=== PATIENT | male | born 1940 | race Caucasian/White ===

== ENCOUNTER 2020-03-23 15:58 | Observation (INO) | payer MEDICARE ==
[2020-03-23 19:00] LABS: #Lymphocytes 1.9 thou/uL (1.20-3.40); #Monocytes 0.7 thou/uL (0.11-0.59); #Neutrophils 5.3 thou/uL (1.40-6.50); %Basophils 0.4 % (0.0-1.0); %Eosinophils 0.6 % (0.0-10.0); %Lymphocytes 23.6 % (21.0-51.0); %Monocytes 8.3 % (0.0-10.0); %Neutrophils 67.2 % (42.0-75.0); Hemoglobin 15.8 g/dL (14.0-18.0); Mean Corpuscular HGB CONC 32.5 g/dL (32.0-36.0); Mean Corpuscular Hemoglobin 31.5 pg (27.0-31.0); Mean Platelet Volume 7.3 fL (7.4-10.4); Platelet Count 232 thou/uL (130-400); RBC Distribution Width 11.3 % (11.5-14.5); Red Blood Cell (RBC) Count 5.01 mill/uL (4.70-6.10); White Blood Cell (WBC) Count 7.9 thou/uL (4.8-10.8)
[2020-03-23 19:06] LABS: ALT (SGPT) 16 U/L (8-55); AST (SGOT) 16 U/L (5-34); Albumin 4.3 g/dL (3.4-4.8); Alkaline Phosphatase 63 U/L (40-110); Anion Gap 13 mmol/L (10-20); BUN (Urea Nitrogen) 19 mg/dL (8.4-25.7); Bilirubin, Total 0.3 mg/dL (0.2-1.2); Calc. Creatinine Clearance 0 mL/min (70-130); Calcium 9.3 mg/dL (7.8-10.44); Carbon Dioxide 27 mmol/L (23-31); Chloride 106 mmol/L (98-107); Estimated GFR-MDRD 73; Globulin 2.9 g/dL (2.4-3.5); Glucose 94 mg/dL (83-110); Potassium 4.6 mmol/L (3.5-5.1); Protein, Total 7.2 g/dL (5.8-8.1); Sodium 141 mmol/L (136-145)
[2020-03-23] MEDS ORDERED: Aspirin Chewable 81 MG TAB ONE ×2 (19:51→19:52)
--- NOTE | 2020-03-23 20:45 | RAD ---
CHEST ONE VIEW: 03/23/20 HISTORY: Chest pain. COMPARISON: None. FINDINGS: Lungs are mildly hypoinflated. Heart size is enlarged. No pneumothorax. No effusion. No acute osseous abnormality. IMPRESSION: Lung hypoinflation with bibasilar atelectasis and crowding of the pulmonary vasculature. POS: HOME
--- NOTE | 2020-03-23 21:56 | PDOC.HHP ---
Hospitalist HPI - History of Present Illness Blurry vision, chest discomfort History of Present Illness: Mr. Espinoza is a 79-year-old male with a past medical history of hypertension who presented to the emergency room for multiple episodes of lightheadedness. Patient reports that over the past 4 days he has had episodes where he feels mild chest discomfort, diaphoretic, weak all over with blurry vision. Episodes will last only for a few seconds and then completely resolved. Patient has noticed these episodes at rest and also on exertion. He denies any shortness of breath, palpitations. He denies any nausea vomiting or diarrhea. Denies melena, hematochezia. Patient has limited past medical history, and does not have a primary care provider. He does report that he has a history of high blood pressure, but that he is not on any medication for it. In emergency room initial vital signs 170/87, 57, 18, 98.2, 95% on room air EKG showed no ischemic changes, but atrial bigeminy complexes and LVH. Initial troponin less than 0.010. BUN/CR 19/0.99. H/H 15.8/48.6. WBC 7.9. Sodium 141, potassium 4.6. Glucose 73. Patient received 325 mg of aspirin in emergency room. Hospitalist ROS - Review of Systems Constitutional: denies: fever, chills, sweats, weakness, malaise, other Eyes: reports: vision change. denies: pain, conjunctivae inflammation, eyelid inflammation, redness, other ENT: denies: ear pain, ear discharge, nose pain, nose discharge, nose congestion, mouth pain, mouth swelling, throat pain, throat swelling, other Respiratory: denies: cough, dry, shortness of breath, hemoptysis, SOB with excertion, pleuritic pain, sputum, wheezing, other Cardiovascular: reports: light headedness. denies: chest pain, palpitations, orthopnea, paroxysmal noc. dyspnea, edema, other Gastrointestinal: denies: nausea, vomiting, abdominal pain, diarrhea, constipation, melena, hematochezia, other Genitourinary: denies: dysuria, frequency, incontinence, hematuria, retention, other Musculoskeletal: denies: neck pain, shoulder pain, arm pain, back pain, hand pain, leg pain, foot pain, other Skin: denies: rash, lesions, mohan, bruising, other Neurological: denies: weakness, numbness, incoordination, change in speech, confusion, seizures, other - Medication Medications: No home medications No known drug allergies Hospitalist History - Past Medical History Other Medical History: Past medical history of Hypertension, uncontrolled 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 - Family History Other Family History: Patient endorses family history of heart disease with his father had a CABG in his 60s - Social History Smoking Status: Never smoker Alcohol: reports: Rare Drugs: reports: none Living Situation: With Family Activity level: independent ambulation - Exam General Appearance: NAD, awake alert Eye: PERRL, anicteric sclera ENT: normocephalic atraumatic, no oropharyngeal lesions, moist mucosa Neck: supple, symmetric, no JVD, no thyromegaly, no lymphadenopathy, no carotid bruit Heart: no murmur, no gallops, no rubs, normal peripheral pulses, irregular Respiratory: CTAB, no wheezes, no rales, no ronchi, normal chest expansion, no tachypnea, normal percussion Gastrointestinal: soft, non-tender, non-distended, normal bowel sounds, no palpable masses, no hepatomegaly, no splenomegaly, no bruit Extremities: no cyanosis, no clubbing, no edema Skin: normal turgor, no lesions, no rashes Neurological: cranial nerve grossly intact, normal sensation to touch, no weakness, no focal deficits, no new deficit Musculoskeletal: normal tone, normal strength, no muscle wasting Psychiatric: normal affect, normal behavior, A&O x 3 Hospitalist Results - Labs Result Diagrams: 03/23/20 18:36 03/23/20 18:36 Lab results: WBC 7.9 thou/uL (4.8-10.8) 03/23/20 18:36 Hgb 15.8 g/dL (14.0-18.0) 03/23/20 18:36 Hct 48.6 % (42.0-52.0) 03/23/20 18:36 MCV 97.0 fL (78.0-98.0) 03/23/20 18:36 Plt Count 232 thou/uL (130-400) 03/23/20 18:36 Neutrophils % 67.2 % (42.0-75.0) 03/23/20 18:36 Sodium 141 mmol/L (136-145) 03/23/20 18:36 Potassium 4.6 mmol/L (3.5-5.1) 03/23/20 18:36 Chloride 106 mmol/L (98-107) 03/23/20 18:36 Carbon Dioxide 27 mmol/L (23-31) 03/23/20 18:36 BUN 19 mg/dL (8.4-25.7) 03/23/20 18:36 Creatinine 0.99 mg/dL (0.7-1.3) 03/23/20 18:36 Glucose 94 mg/dL (83-110) 03/23/20 18:36 Calcium 9.3 mg/dL (7.8-10.44) 03/23/20 18:36 Total Bilirubin 0.3 mg/dL (0.2-1.2) 03/23/20 18:36 AST 16 U/L (5-34) 03/23/20 18:36 ALT 16 U/L (8-55) 03/23/20 18:36 Alkaline Phosphatase 63 U/L (40-110) 03/23/20 18:36 Troponin I Less than 0.010 ng/mL (< 0.028) 03/23/20 18:36 Serum Total Protein 7.2 g/dL (5.8-8.1) 03/23/20 18:36 Albumin 4.3 g/dL (3.4-4.8) 03/23/20 18:36 Hospitalist H&P A/P - Plan Plan: Chest pain 79-year-old male with past medical history of uncontrolled hypertension and family history of cardiac disease presents with multiple episodes of chest discomfort, lightheadedness and diaphoresis. EKG showed atrial bigeminy with nonspecific changes and LVH. Initial troponin 0 0.010. H&H stable. Since patient has not had medical follow-up in quite some time suspect patient has many underlying factors for cardiac disease. Will admit for chest pain rule out. Plan Telemetry monitoring Trend troponins TSH, magnesium, lipid panel, hemoglobin A1c Orthostatic vital signs Echocardiogram Stress testing if troponins stay negative Aspirin Blurred vision Patient reports what sounds like presyncopal episodes associated with blurred vision. Since patient reports that blurred vision is his first presenting sign and this has occurred multiple times in the past 4 days and patient associates a vague numbness to his hands we will pursue a head CT. Plan CT brain Telemetry monitoring q4 neurochecks Aspirin Hypertension Patient hypertensive on admission to 190s. Patient reports that he normally runs about 140s, and is not on any medications for his blood pressure. He generally avoids doctors. Will start patient on amlodipine and continue to monitor blood pressures Plan P.o. amlodipine Continue to monitor Case discussed with attending physician, Dr. Shelley.
[2020-03-23 22:10] LABS: Troponin I Less than 0.010 ng/mL (< 0.028)
[2020-03-23 22:37] LABS: Hemoglobin A1c 5.4 % (4.0-6.0)
--- NOTE | 2020-03-23 23:30 | CT ---
CT head noncontrast HISTORY: Weakness. Hypertension. FINDINGS: There is no evidence of acute intracranial hemorrhage or infarct. Mild chronic ischemic sma ll vessel disease is apparent throughout the periventricular white matter of each cerebral hemisphere. There is no mass effect or shift of midline structures. Visualized paranasal sinuses remain well aera yolanda. IMPRESSION : Mild chronic ischemic small vessel disease. No acute intracranial abnormalities are demonstrated.
[2020-03-24] MEDS ORDERED: Acetaminophen 325 MG TAB PO PRN (02:39)
[2020-03-24] MEDS ORDERED: Amlodipine 5 MG TAB PO SCH ×4 (02:50→14:30)
[2020-03-24] MEDS ORDERED: Acetaminophen 325 MG TAB ONE ×2 (03:05)
[2020-03-24] MEDS ORDERED: Amlodipine 5 MG TAB ONE ×3 (03:06→15:40)
[2020-03-24 03:23] VITALS: BP 161/80
[2020-03-24 06:11] LABS: #Eosinphils 0.1 thou/uL (0.0-0.7); #Lymphocytes 1.9 thou/uL (1.20-3.40); #Monocytes 0.6 thou/uL (0.11-0.59); #Neutrophils 4.6 thou/uL (1.40-6.50); %Basophils 0.5 % (0.0-1.0); %Eosinophils 1.2 % (0.0-10.0); %Lymphocytes 25.7 % (21.0-51.0); %Monocytes 8.4 % (0.0-10.0); %Neutrophils 64.2 % (42.0-75.0); Mean Corpuscular HGB CONC 32.2 g/dL (32.0-36.0); Mean Corpuscular Hemoglobin 31.1 pg (27.0-31.0); Mean Corpuscular Volume 96.6 fL (78.0-98.0); Mean Platelet Volume 7.3 fL (7.4-10.4); Platelet Count 195 thou/uL (130-400); RBC Distribution Width 11.4 % (11.5-14.5); Red Blood Cell (RBC) Count 4.83 mill/uL (4.70-6.10); White Blood Cell (WBC) Count 7.2 thou/uL (4.8-10.8)
[2020-03-24 06:33] LABS: Anion Gap 10 mmol/L (10-20); BUN (Urea Nitrogen) 16 mg/dL (8.4-25.7); Calc. Creatinine Clearance 0 mL/min (70-130); Carbon Dioxide 27 mmol/L (23-31); Cardiac Risk 3.9 (Less than 4.5); Chloride 105 mmol/L (98-107); Cholesterol 181 mg/dl (< 200 Desired); Estimated GFR-MDRD 90; Glucose 101 mg/dL (83-110); HDL Cholesterol 46 mg/dL (>60 Neg Risk); LDL Cholesterol, Calculated 119 mg/dL; Sodium 138 mmol/L (136-145); Triglycerides 78 mg/dL (Less than 150)
[2020-03-24] MEDS ORDERED: Aspirin Chewable 81 MG TAB ONE (08:13)
[2020-03-24] MEDS ORDERED: Aspirin 81 mg Enteric Coated Tablet PO SCH (09:00)
[2020-03-24] MEDS ORDERED: ADENOSINE 60 MG/20 ML VIAL ONE ×2 (10:38→14:07)
--- NOTE | 2020-03-24 13:15 | NM ---
CARDIAC SPECTZ; HISTORY: A 79-year-old male with chest pain, hypertension, and family history of pulmonary artery disease. TECHNIQUE: A myocardial perfusion scan was performed using a single-isotope 1-day protocol with Technetium 99m s estamibi. 10 mCi were injected intravenously for the rest exam followed by 13 mCi for the stress diane dy. Pharmacologic stress with adenosine was monitored and interpreted by Kalee ____, Nurse Mictitsole palacios. FINDINGS: There is a small fixed defect in the distal anteroseptal wall with normal contractility and wall thic kness, likely due to artifact. No reversible defects are seen. GATED SPECT LVEF: 58%. WALL MOTION EXAM: Normal. IMPRESSION: No evidence of reversible ischemia. POS: OFF
[2020-03-24] MEDS ORDERED: Labetalol HCl 100 MG/20 ML VIAL SLOW IVP SCH (16:30)
--- NOTE | 2020-03-24 16:44 | PDOC.DS.DS ---
Provider - Provider Date of Admission: 03/23/20 21:27 Date of Discharge: 03/24/20 Admitting Provider: Gilbert Shelley MD Primary Care Physician: NO PCP PROVIDER Course - Hospital Course Hospital Course: Discharge diagnosis: 1. Hypertensive urgency 2. Lightheadedness, resolved Hospital course: Patient is a pleasant 79-year-old gentleman was admitted to the hospital on March 23, 2020 for lightheadedness. There was also concern regarding chest pain at the time of admission, although patient told me he never had any chest pain. Following admission, his symptoms resolved. Noncontrast CT scan of the brain did not show any acute intracranial abnormality. Nuclear stress test showed a small fixed defect in the distal anteroseptal wall with normal contractility and wall thickness, likely due to artifact. No reversible defects were seen. Patient's blood pressures were markedly elevated. He has been started on amlodipine 5 mg daily. He is advised to check his blood pressure and heart rate 3 times a day and shows readings to his primary care provider. Many thanks for allowing me to participate in your patient's care. Please feel free to contact me with any questions or concerns. Resuscitation Status: 03/23/20 22:14 Resuscitation Status Routine Co-Sign Provider: Resuscitation Status: FULL: Full Resuscitation - Labs Lab Results: 03/24/20 05:56 03/24/20 05:56 Abnormal Lab Results - Last 48 hrs 03/23/20 18:36: MCH 31.5 H, RDW 11.3 L, MPV 7.3 L, Monocytes # 0.7 H 03/24/20 05:56: MCH 31.1 H, RDW 11.4 L, MPV 7.3 L, Monocytes # 0.6 H - Physical Exam Vitals: Vital Signs (12 hours) Pulse BP 03/24/20 15:43 55 L 161/80 H 03/24/20 08:32 55 L 161/80 H Physical Exam: The patient was seen and examined on the day of discharge. Patient denies chest pain or shortness of breath. Vital signs are stable. S1 and S2 are heard. Lungs are clear to auscultation bilaterally. Plan - Discharge Medications Prescriptions: Amlodipine [Norvasc] 5 mg PO DAILY #30 tab Home Medications: Medication Instructions Recorded Confirmed Type Amlodipine [Norvasc] 5 mg PO DAILY #30 tab 03/24/20 Rx Allergies: No Known Allergies Allergy (Unverified 03/24/20 00:14) - Discharge Instructions Discharge Instructions:: Check your blood pressure and heart rate 3 times a day and shows readings to your primary care provider. Activity:: Activity as Tolerated Nourishment:: Heart Healthy Diet - Follow up Plan Referrals: PROVIDER,NO PCP [Primary Care Provider] - 3 Days Disposition: HOME Quality - Care Measures CORE MEASURES:: N/A
--- NOTE | 2020-04-03 17:38 | EKG ---
Test Reason : WEAKNESS Blood Pressure : / mmHG Vent. Rate : 060 BPM Atrial Rate : 060 BPM P-R Int : 168 ms QRS Dur : 116 ms QT Int : 444 ms P-R-T Axes : 000 -24 073 degrees QTc Int : 444 ms Sinus rhythm with Premature atrial complexes in a pattern of bigeminy Left ventricular hypertrophy with QRS widening and repolarization abnormality Abnormal ECG Confirmed by ALPA MOSELEY M.D. ([id number]), editor continuity and script FLORY RIZO ([id number]) on 04/03/2020 5:38:02 PM Referred By: Confirmed By:ALPA MOSELEY M.D.
== END 2020-03-24 16:48 | disposition home or self-care (01) ==
LOC: ERS 15:58 → ERHOLD 21:27
PROVIDERS: ADMIT Internal Medicine; ATTEND Internal Medicine
DX: I16.0 Hypertensive urgency (principal); I10 Essential (primary) hypertension; R42 Dizziness and giddiness; H53.8 Other visual disturbances; Z90.49 Acquired absence of other specified parts of digestive tract
CPT/HCPCS: 70450; 71045; 78452; 80048; 80061; 83036; 83735; 84484 ×3; 85025; 93005; 93017; 99285; A9500; 36415; 80053; 84443; J0153